=== PATIENT | female | born 1950 | race American Indian/Alaskan Native ===

== ENCOUNTER 2022-01-18 22:11 | Emergency (ER) | payer MEDICARE ==
[2022-01-18] MEDS ORDERED: MORPHINE 4 MG/1 ML INJ IV ONE (22:32)
[2022-01-18] MEDS ORDERED: ONDANSETRON 4 MG/2 ML INJ IV ONE (22:32)
[2022-01-18] MEDS ORDERED: SODIUM CHLORIDE 0.9% 1000 ML 1,000 ML IV ONE (22:32)
--- NOTE | 2022-01-18 22:36 | Emergency Department Report ---
ED General Adult HPI - General Chief complaint: Nausea/Vomiting/Diarrhea Stated complaint: VOMITING X 4 HRS Time Seen by Provider: 01/18/22 22:30 Source: patient, family, EMS ( EMS documentation not available at time of chart dictation ), RN notes reviewed Mode of arrival: Stretcher Limitations: No Limitations - History of Present Illness Initial comments: This is a pleasant and cooperative 71-year-old female, who denies significant past medical history and surgical history, presenting to the department today with complaint of nausea and vomiting which is painless, and now resolved. She denies urinary symptoms. She would like to be discharged. She currently denies headache, neck pain, chest pain, abdominal pain, shortness of breath. She denies COVID symptoms. Emesis is clear/red/yellow. She is defecating normally. No sick contacts at home. No consumption of undercooked or raw food. -: Sudden, hour(s) Consistency: now resolved Improves with: none Worsens with: none Associated Symptoms: denies other symptoms - Related Data Previous Rx's Medication Instructions Recorded Last Taken Type Acetaminophen [Non-Aspirin Extra 500 mg PO Q6HR PRN #30 tablet 01/19/22 Unknown Rx Strength] Maya Root [Maya] 250 mg PO QID PRN #30 capsule 01/19/22 Unknown Rx Magnesium Oxide 400 mg PO QDAY #30 tab 01/19/22 Unknown Rx Ondansetron [Zofran Odt] 4 mg PO Q8HR PRN #20 tab.rapdis 01/19/22 Unknown Rx Potassium Chloride 20 meq PO QDAY #30 packet 01/19/22 Unknown Rx Allergies Allergy/AdvReac Type Severity Reaction Status Date / Time No Known Allergies Allergy Verified 01/18/22 22:36 ED Review of Systems ROS: Stated complaint: VOMITING X 4 HRS Other details as noted in HPI Comment: All other systems reviewed and negative Constitutional: denies: malaise Eyes: denies: vision change ENT: denies: epistaxis Respiratory: denies: cough Cardiovascular: denies: chest pain Gastrointestinal: nausea, vomiting. denies: diarrhea Genitourinary: denies: dysuria ED Past Medical Hx - Medications Home Medications: Home Medications Medication Instructions Recorded Confirmed Last Taken Type Acetaminophen [Non-Aspirin Extra 500 mg PO Q6HR PRN #30 tablet 01/19/22 Unknown Rx Strength] Maya Root [Maya] 250 mg PO QID PRN #30 capsule 01/19/22 Unknown Rx Magnesium Oxide 400 mg PO QDAY #30 tab 01/19/22 Unknown Rx Ondansetron [Zofran Odt] 4 mg PO Q8HR PRN #20 tab.rapdis 01/19/22 Unknown Rx Potassium Chloride 20 meq PO QDAY #30 packet 01/19/22 Unknown Rx ED Physical Exam - General Limitations: No Limitations General appearance: alert, anxious - Head Head exam: Present: atraumatic, normocephalic - Eye Eye exam: Present: normal appearance, EOMI. Absent: nystagmus - ENT ENT exam: Present: normal exam, normal orophraynx, mucous membranes moist, normal external ear exam - Neck Neck exam: Present: normal inspection, full ROM. Absent: tenderness, meningismus - Respiratory Respiratory exam: Present: normal lung sounds bilaterally. Absent: respiratory distress, wheezes, rales, rhonchi, stridor, decreased breath sounds - Cardiovascular Cardiovascular Exam: Present: normal rhythm, tachycardia, normal heart sounds. Absent: bradycardia, irregular rhythm, systolic murmur, diastolic murmur, rubs, gallop - GI/Abdominal GI/Abdominal exam: Present: soft. Absent: distended, tenderness, guarding, rebound, rigid, pulsatile mass - Extremities Exam Extremities exam: Present: normal inspection, full ROM, other (2+ pulses noted in the bilateral upper and lower extremities. There is no palpable cord. negative Homans sign. Muscular compartments are soft. The pelvis is stable.). Absent: pedal edema, calf tenderness - Back Exam Back exam: Present: normal inspection, full ROM. Absent: tenderness, CVA tenderness (R), CVA tenderness (L), paraspinal tenderness, vertebral tenderness - Neurological Exam Neurological exam: Present: alert, oriented X3, normal gait, other (No facial droop. Tongue midline. Extraocular movements intact bilaterally. Facial sensation intact to light touch in V1, V2, V3 distribution bilaterally. 5 and a 5 strength in 4 extremities. Sensation intact to light touch in 4 extremities.). Absent: motor sensory deficit - Psychiatric Psychiatric exam: Present: anxious - Skin Skin exam: Present: warm, dry, intact, normal color. Absent: rash ED Course Vital Signs 01/18/22 01/19/22 22:21 00:41 Temperature 97.9 F 98.3 F Pulse Rate 121 H 85 Respiratory 16 16 Rate Blood Pressure 132/86 Blood Pressure 116/61 [Right] O2 Sat by Pulse 99 98 Oximetry - Reevaluation(s) Reevaluation #1: 01/19/22 00:20 Differential diagnosis, including but not limited to: GERD, gastritis, hiatal hernia, renal colic, colitis, diverticulitis, Assessment and plan: 71-year-old female with resolved tachycardia, heart rate currently in the 90s. She presents with resolved nausea and vomiting. Abdomen is soft and benign, without rebound, guarding or peritoneal signs. Given advanced age, complaint of unopposed nausea and vomiting, treat symptoms, obtain CT scan abdomen pelvis. Reassess after initial data points. Obtain troponin x2. Discussed plan of care with patient and family members. They are agreeable to the plan of care. 01/19/22 02:17 No active vomiting. Feels much improved. I personally provided the patient water, which she was able to tolerate. Leukocytosis is likely a stress reaction. The patient specifically denies irritative and obstructive urinary symptoms. CT scan suggested enteritis. This is most likely viral. This can be treated supportively and symptomatica lly. We will discharge with as needed Tylenol, antiemetic medication, Patient may take potassium/magnesium supplementation. Given CT scan findings, clinical history, this is most likely GI related, this is very unlikely to be an atypical presentation of acute coronary syndrome 01/19/22 02:48 Final reassessment. No acute distress. Tolerating liquid feeds. No urinary symptoms. Treat as probable viral enteritis. Discharged with supportive care. Return precautions are reviewed. All questions answered. ED Medical Decision Making - Lab Data Result diagrams: 01/18/22 23:05 01/19/22 00:00 Vital Signs 01/18/22 22:21 Temperature 97.9 F Pulse Rate 121 H Respiratory 16 Rate Blood Pressure 116/61 [Right] O2 Sat by Pulse 99 Oximetry Lab Results 01/18/22 01/18/22 01/18/22 Range/Units 23:05 23:05 23:05 WBC 14.0 H (4.5-11.0) K/mm3 RBC 4.75 (3.65-5.03) M/mm3 Hgb 13.1 (10.1-14.3) gm/dl Hct 40.3 (30.3-42.9) % MCV 85 (79-97) fl MCH 28 (28-32) pg MCHC 33 (30-34) % RDW 16.0 H (13.2-15.2) % Plt Count 230 (140-440) K/mm3 Lymph % (Auto) 8.4 L (13.4-35.0) % [place] % (Auto) 5.2 (0.0-7.3) % Eos % (Auto) 0.1 (0.0-4.3) % Baso % (Auto) 0.3 (0.0-1.8) % Lymph # (Auto) 1.2 (1.2-5.4) K/mm3 [place] # (Auto) 0.7 (0.0-0.8) K/mm3 Eos # (Auto) 0.0 (0.0-0.4) K/mm3 Baso # (Auto) 0.0 (0.0-0.1) K/mm3 Seg Neutrophils % 86.0 H (40.0-70.0) % Seg Neutrophils # 12.0 H (1.8-7.7) K/mm3 PT 12.9 (12.2-14.9) Sec. INR 0.86 L (0.87-1.13) Magnesium (1.7-2.3) mg/dL Total Bilirubin 0.30 (0.1-1.2) mg/dL Direct Bilirubin < 0.2 (0-0.2) mg/dL Indirect Bilirubin 0.1 mg/dL AST 19 (5-40) units/L ALT 13 (7-56) units/L Alkaline Phosphatase 107 (35-129) units/L Total Creatine Kinase (30-135) units/L Troponin T (0.00-0.029) ng/mL Total Protein 8.0 (6.3-8.2) g/dL Albumin 4.9 (3.9-5) g/dL Albumin/Globulin Ratio 1.6 % Lipase 40 (13-60) units/L TSH (0.270-4.200) mlU/mL 01/18/22 01/18/22 Range/Units 23:05 23:05 WBC (4.5-11.0) K/mm3 RBC (3.65-5.03) M/mm3 Hgb (10.1-14.3) gm/dl Hct (30.3-42.9) % MCV (79-97) fl MCH (28-32) pg MCHC (30-34) % RDW (13.2-15.2) % Plt Count (140-440) K/mm3 Lymph % (Auto) (13.4-35.0) % [place] % (Auto) (0.0-7.3) % Eos % (Auto) (0.0-4.3) % Baso % (Auto) (0.0-1.8) % Lymph # (Auto) (1.2-5.4) K/mm3 [place] # (Auto) (0.0-0.8) K/mm3 Eos # (Auto) (0.0-0.4) K/mm3 Baso # (Auto) (0.0-0.1) K/mm3 Seg Neutrophils % (40.0-70.0) % Seg Neutrophils # (1.8-7.7) K/mm3 PT (12.2-14.9) Sec. INR (0.87-1.13) Magnesium 1.60 L (1.7-2.3) mg/dL Total Bilirubin (0.1-1.2) mg/dL Direct Bilirubin (0-0.2) mg/dL Indirect Bilirubin mg/dL AST (5-40) units/L ALT (7-56) units/L Alkaline Phosphatase (35-129) units/L Total Creatine Kinase 180 H (30-135) units/L Troponin T < 0.010 (0.00-0.029) ng/mL Total Protein (6.3-8.2) g/dL Albumin (3.9-5) g/dL Albumin/Globulin Ratio % Lipase (13-60) units/L TSH 6.310 H (0.270-4.200) mlU/mL - EKG Data -: EKG Interpreted by [place] EKG shows normal: sinus rhythm Rate: tachycardia - EKG Data 01/19/22 00:17 The EKG is interpreted at 22: 54 Sinus rhythm, tachycardia, rate of rate of 100 bpm. Normal axis, normal P wave axis, atrial enlargement, motion artifact, QTC 4 9 0 ms. Motion artifact. This is an abnormal EKG. This is not a STEMI - Radiology Data Radiology results: pending, report reviewed, image reviewed CT ABDOMEN AND PELVIS WITH CONTRAST INDICATION / CLINICAL INFORMATION: Acute nausea and vomiting with tachycardia. TECHNIQUE: Axial CT images were obtained through the abdomen and pelvis after 100 mL Omnipaque [address] scans at this location are performed using CT dose reduction for ALARA by means of automated exposure control. COMPARISON: None available. FINDINGS: LOWER CHEST: No significant abnormality. LIVER: Mild hepatomegaly and suspected diffuse hepatic steatosis. GALLBLADDER/BILIARY: No significant abnormality or evidence for biliary obstruction. PANCREAS: No significant abnormality. SPLEEN: Multiple small benign appearing splenic hypodensities with associated calcified granulomas. ADRENALS: No significant abnormality. KIDNEYS/URETERS: Simple appearing renal cysts. No urolithiasis, hydronephrosis, solid renal mass or other acute process. GI: Scattered colonic diverticulosis without evidence for acute diverticulitis. Liquid stool within the colon and several small bowel air- fluid levels most consistent with a generalized self-limited enteritis/diarrheal illness. No other acute bowel inflammation, obstruction or evidence for ischemia. APPENDIX: Not visualized. PERITONEUM: No pneumoperitoneum, free peritoneal fluid or loculated fluid collection. LYMPH NODES: No significant adenopathy. AORTA / ARTERIES: Moderate atherosclerotic calcification without acute abnormality. URINARY BLADDER: No significant abnormality. REPRODUCTIVE ORGANS: Uterus is absent. No significant adnexal abnormality. SKELETAL SYSTEM: No acute or destructive osseous process. ADDITIONAL FINDINGS: Fat-containing umbilical hernia. IMPRESSION: 1. Liquid stool within the colon and several sm all bowel air-fluid levels most consistent with a generalized self-limited enteritis/diarrheal illness. 2. Other mild chronic and postoperative incidental findings, as detailed above. Signer Name: Silas Lundy MD Signed: 01/19/2022 12:56 AM Workstation Name: [id number] Critical care attestation.: If time is entered above; I have spent that time in minutes in the direct care of this critically ill patient, excluding procedure time. ED Disposition Clinical Impression: Nausea and vomiting, Hypokalemia, Hypomagnesemia, Enteritis Disposition: 01 HOME / SELF CARE / HOMELESS Is pt being admited?: No Does the pt Need Aspirin: No Condition: Good Instructions: Viral Gastroenteritis, Adult, Nausea and Vomiting, Adult Additional Instructions: Advance diet as tolerated. Consume a bland diet, and consume foods such as banana, avocado, potato, to improve hypokalemia and hypomagnesemia. Do not take metformin medication for the next 2 days, if patient takes this medication. We recommend follow-up with an outpatient primary care doctor within the next 3 to 5 days for repeat checkup and evaluation. Please have your outpatient physician contact our medical records department, to obtain copies of laboratory studies and radiology studies, to follow-up on nonemergent incidental abnormal findings. Please return to the emergency room right away with new pain, worsened pain, migration of pain, projectile vomiting, change in mental status, confusion, inability tolerate liquid feeds, new, worsened or different symptoms not present on the initial emergency room evaluation Prescriptions: Maya Root [Maya] 250 mg PO QID PRN #30 capsule PRN Reason: Nausea Acetaminophen [Non-Aspirin Extra Strength] 500 mg PO Q6HR PRN #30 tablet PRN Reason: Pain , Severe (7-10) Ondansetron [Zofran Odt] 4 mg PO Q8HR PRN #20 tab.rapdis PRN Reason: Nausea Referrals: SANDHYA ZIEGLER MD [Primary Care Provider] - 3-5 Days Forms: Work/School Release Form(ED)
[2022-01-18 23:17] LABS: Basophils % (Auto) 0.3 % (0.0-1.8); Eosinophils % (Auto) 0.1 % (0.0-4.3); Hematocrit 40.3 % (30.3-42.9); Hemoglobin 13.1 gm/dl (10.1-14.3); Lymphocytes # (Auto) 1.2 K/mm3 (1.2-5.4); Lymphocytes % (Auto) 8.4 % (13.4-35.0); Mean Corpuscular HGB Conc 33 % (30-34); Mean Corpuscular Volume 85 fl (79-97); Monocytes # (Auto) 0.7 K/mm3 (0.0-0.8); Monocytes % (Auto) 5.2 % (0.0-7.3); Platelet Count 230 K/mm3 (140-440); Red Blood Count 4.75 M/mm3 (3.65-5.03)
[2022-01-18 23:28] LABS: INR 0.86 (0.87-1.13)
[2022-01-18 23:40] LABS: Alanine Aminotransferase 13 units/L (7-56); Albumin 4.9 g/dL (3.9-5)
[2022-01-18 23:41] LABS: Bilirubin,Direct < 0.2 mg/dL (0-0.2)
[2022-01-19] MEDS ORDERED: MAGNESIUM OXIDE 400 MG TAB PO STA (00:16)
[2022-01-19 00:49] VITALS: BP 132/86
[2022-01-19] MEDS ORDERED: POTASSIUM CHLORIDE ER 20 MEQ TAB PO ONE (00:53)
--- NOTE | 2022-01-19 02:00 | Cat Scan Report ---
CT ABDOMEN AND PELVIS WITH CONTRAST INDICATION / CLINICAL INFORMATION: Acute nausea and vomiting with tachycardia. TECHNIQUE: Axial CT images were obtained through the abdomen and pelvis after 100 mL Omnipaque [address] scans at this location are performed using CT dose reduction for ALARA by means of automated exposure control. COMPARISON: None available. FINDINGS: LOWER CHEST: No significant abnormality. LIVER: Mild hepatomegaly and suspected diffuse hepatic steatosis. GALLBLADDER/BILIARY: No significant abnormality or evidence for biliary obstruction. PANCREAS: No significant abnormality. SPLEEN: Multiple small benign appearing splenic hypodensities with associated calcified granulomas. ADRENALS: No significant abnormality. KIDNEYS/URETERS: Simple appearing renal cysts. No urolithiasis, hydronephrosis, solid renal mass or other acute process. GI: Scattered colonic diverticulosis without evidence for acute diverticulitis. Liquid stool within t he colon and several small bowel air-fluid levels most consistent with a generalized self-limited ent eritis/diarrheal illness. No other acute bowel inflammation, obstruction or evidence for ischemia. APPENDIX: Not visualized. PERITONEUM: No pneumoperitoneum, free peritoneal fluid or loculated fluid collection. LYMPH NODES: No significant adenopathy. AORTA / ARTERIES: Moderate atherosclerotic calcification without acute abnormality. URINARY BLADDER: No significant abnormality. REPRODUCTIVE ORGANS: Uterus is absent. No significant adnexal abnormality. SKELETAL SYSTEM: No acute or destructive osseous process. ADDITIONAL FINDINGS: Fat-containing umbilical hernia. IMPRESSION: 1. Liquid stool within the colon and several small bowel air-fluid levels most consistent with a gene ralized self-limited enteritis/diarrheal illness. 2. Other mild chronic and postoperative incidental findings, as detailed above. Signer Name: Silas Lundy MD Signed: 01/19/2022 1:56 AM Workstation Name: [id number]
--- NOTE | 2022-01-21 12:03 | Electrocardiograph Report ---
[facility] Test Date: 2022-01-18 Test Time: 22:54:44 Pat Name: JANET CONNELL Department: Room: Gender: F [employer]: AVELINO : 1950 Requested By: GT THOMAS Order Number: [id number] Reading MD: Lucius Montgomery Measurements Intervals [place] Rate: 100 P: 76 VT: 141 QRS: 59 QRSD: 83 T: 27 QT: 381 QTc: 490 Interpretive Statements Sinus tachycardia Probable inferior infarct, old No previous ECG available for comparison Electronically Signed On 01-21-2022 9:03:48 PDT by Lucius Montgomery
== END 2022-01-19 02:30 | disposition home or self-care (01) ==
LOC: ED 22:11
DX: R11.2 Nausea with vomiting, unspecified (principal); E83.42 Hypomagnesemia; K52.9 Noninfective gastroenteritis and colitis, unspecified; E87.6 Hypokalemia
CPT/HCPCS: 36415; 74177; 80048; 80076; 82550; 83690; 83735; 84443; 84484; 85025; 85610; 93005; 96361; 96374; 99284; J2405; Q9967